=== PATIENT | female | born 1980 | race Caucasian/White ===

== ENCOUNTER 2016-12-08 14:41 | Emergency (ER) | payer BC ==
[~2016-12-08] VITALS: Ht 165.1 cm; Wt 78.9 kg
[2016-12-08] MEDS ORDERED: ZOLO100T PO (14:57)
[2016-12-08] MEDS ORDERED: PHEN-239 PO (14:57)
[2016-12-08] MEDS ORDERED: ORTHTAB6 PO (14:57)
[2016-12-08] MEDS ORDERED: PRED20TA PO (15:04)
[2016-12-08] MEDS ORDERED: ROBA500T PO (15:04)
[2016-12-08] MEDS ORDERED: HYDR-3719 PO (15:04)
[2016-12-08] MEDS ORDERED: GABA-282 PO (15:04)
[2016-12-08] MEDS ORDERED: KETOROLAC 60 MG/2 ML VIAL (J1885) IM ONE (15:30)
[2016-12-08 15:49] VITALS: BP 133/69
== END 2016-12-08 16:02 | disposition home or self-care (01) ==
LOC: M ED 15:43
DX: M54.17 Radiculopathy, lumbosacral region (principal); M54.32 Sciatica, left side; J45.909 Unspecified asthma, uncomplicated; K58.9 Irritable bowel syndrome, unspecified; E28.2 Polycystic ovarian syndrome; F32.9 Major depressive disorder, single episode, unspecified; Z79.899 Other long term (current) drug therapy; Z88.6 Allergy status to analgesic agent; Z88.5 Allergy status to narcotic agent
CPT/HCPCS: 96372; 99282; J1885